=== PATIENT | male | born 1975 | race Caucasian/White ===

== ENCOUNTER 2022-01-17 11:44 | Inpatient (IN) | payer OTHER ==
[2022-01-17] MEDS ORDERED: MAGNESIUM HYDROX 2400MG/30ML ORAL SUSPENSION 30 ML CUP PO PRN (12:15)
[2022-01-17] MEDS ORDERED: MAGNESIUM CITRATE 300 ML BOTTLE PO PRN (12:15)
[2022-01-17] MEDS ORDERED: ONDANSETRON *ODT* 4 MG TABLET SL PRN (12:15)
[2022-01-17] MEDS ORDERED: IBUPROFEN 400 MG TABLET (FP) PO PRN (12:15)
[2022-01-17] MEDS ORDERED: ACETAMINOPHEN 325 MG TABLET (FP) PO PRN ×2 (12:15)
[2022-01-17] MEDS ORDERED: NICOTINE 10 MG CARTRIDGE (INHALER) IH PRN (12:15)
[2022-01-17] MEDS ORDERED: DICYCLOMINE HCL 10 MG CAPSULE PO PRN (12:15)
[2022-01-17] MEDS ORDERED: MAG HYDROX/AL HYDROX/SIMETH 30 ML UNIT-DOSE CUP PO PRN (12:15)
[2022-01-17] MEDS ORDERED: BISMUTH SUBSALICYLATE 262 MG/15 ML BTL PO PRN (12:15)
[2022-01-17] MEDS ORDERED: BENZOCAINE/MENTHOL (CHLORASEPTIC ) LOZENGE MM PRN (12:15)
[2022-01-17 12:30] VITALS: BMI 18.3
[2022-01-17] MEDS: PRENATAL VITAMINS W/ FOLIC ACID TABLET (FP) PO SCH (15:24)
[2022-01-17] MEDS: hydrOXYzine PAMOATE 25 MG CAPSULE (FP) PO SCH ×3 (15:24→22:39)
[2022-01-17] MEDS: NICOTINE 14 MG/24 HOURS TOPICAL PATCH TD SCH (15:24)
[2022-01-17 17:14] LABS: HEMATOCRIT 35.1 % (35.4-49); HEMOGLOBIN 11.3 GM/dL (11.7-16.9); MCH 27.1 pg (25.7-33.7); MCHC 32.1 g/dl (32.0-35.9); MEAN CELL VOLUME 84.5 fl (80-96); MEAN PLT VOLUME 9.7 fl (7.5-11.1); PLATELET COUNT 243 10^3/uL (134-434); RBC 4.16 M/mm3 (4.00-5.60); RDW 14.8 % (11.9-15.9); WHITE BLOOD COUNT 5.7 K/mm3 (4.0-10.0)
[2022-01-17 17:30] LABS: ALBUMIN 3.1 g/dl (3.4-5.0); BLOOD UREA NITROGEN 24.5 mg/dL (7-18); CALCIUM 8.7 mg/dL (8.5-10.1)
[2022-01-17 17:35] LABS: BILIRUBIN,TOTAL 0.5 mg/dL (0.2-1); TOT PROT 6.4 g/dl (6.4-8.2)
[2022-01-17] MEDS: METHOCARBAMOL 500 MG TABLET PO PRN (22:39)
[2022-01-17] MEDS: MELATONIN 5 MG TABLETS PO SCH (22:39)
[2022-01-17] MEDS: THIAMINE HCL 100 MG TABLET (FP) PO SCH (22:39)
[2022-01-18] MEDS: hydrOXYzine PAMOATE 25 MG CAPSULE (FP) PO SCH ×4 (07:37→17:45)
[2022-01-18] MEDS ORDERED: diazePAM 5 MG TABLET PO ONE (09:24)
[2022-01-18] MEDS ORDERED: diazePAM 5 MG TABLET PO PRN (09:24)
[2022-01-18] MEDS ORDERED: cloNIDine HCL 0.1 MG TABLET PO PRN (09:25)
[2022-01-18] MEDS ORDERED: methaDONE HCL 10 MG TABLET ONE (09:32)
[2022-01-18] MEDS ORDERED: methaDONE HCL 40 MG DISPERSABLE TABLET ONE (09:32)
[2022-01-18] MEDS: METHOCARBAMOL 500 MG TABLET PO PRN (09:54)
[2022-01-18] MEDS: NICOTINE 14 MG/24 HOURS TOPICAL PATCH TD SCH (09:54)
[2022-01-18] MEDS: PRENATAL VITAMINS W/ FOLIC ACID TABLET (FP) PO SCH (09:54)
[2022-01-18] MEDS ORDERED: methaDONE HCL 40 MG DISPERSABLE TABLET PO SCH (10:00)
[2022-01-18] MEDS ORDERED: methaDONE 40 MG, methaDONE 20 MG PO SCH (10:00)
[2022-01-18] MEDS: diazePAM 5 MG TABLET PO SCH ×3 (10:13→23:00)
[2022-01-18] MEDS: LOPERAMIDE HCL 2 MG CAPSULE PO PRN (11:35)
[2022-01-19] MEDS: MELATONIN 5 MG TABLETS PO SCH ×2 (01:03→22:51)
[2022-01-19] MEDS: hydrOXYzine PAMOATE 25 MG CAPSULE (FP) PO SCH ×6 (01:03→22:51)
[2022-01-19] MEDS: THIAMINE HCL 100 MG TABLET (FP) PO SCH ×2 (01:04→22:51)
[2022-01-19] MEDS: diazePAM 5 MG TABLET PO SCH ×4 (05:11→22:52)
[2022-01-19] MEDS: METHOCARBAMOL 500 MG TABLET PO PRN (05:11)
[2022-01-19] MEDS: LOPERAMIDE HCL 2 MG CAPSULE PO PRN (05:13)
[2022-01-19] MEDS ORDERED: methaDONE HCL 10 MG TABLET ONE (07:57)
[2022-01-19] MEDS ORDERED: methaDONE HCL 40 MG DISPERSABLE TABLET ONE (07:58)
[2022-01-19] MEDS: methaDONE 40 MG, methaDONE 20 MG PO SCH (07:59)
[2022-01-19] MEDS ORDERED: methaDONE HCL 10 MG TABLET PO SCH (08:00)
[2022-01-19] MEDS: PRENATAL VITAMINS W/ FOLIC ACID TABLET (FP) PO SCH (10:19)
[2022-01-19] MEDS: NICOTINE 14 MG/24 HOURS TOPICAL PATCH TD SCH (10:20)
[2022-01-19 14:08] LABS: SARS-CoV-2 NAA Not Detected (Not Detected)
[2022-01-20] MEDS ORDERED: methaDONE HCL 10 MG TABLET ONE (04:08)
[2022-01-20] MEDS ORDERED: methaDONE HCL 40 MG DISPERSABLE TABLET ONE (04:08)
[2022-01-20] MEDS: hydrOXYzine PAMOATE 25 MG CAPSULE (FP) PO SCH ×5 (06:13→22:41)
[2022-01-20] MEDS: methaDONE 40 MG, methaDONE 20 MG PO SCH (06:13)
[2022-01-20] MEDS: diazePAM 5 MG TABLET PO SCH ×3 (06:13→22:41)
[2022-01-20] MEDS: PRENATAL VITAMINS W/ FOLIC ACID TABLET (FP) PO SCH (10:11)
[2022-01-20] MEDS: NICOTINE 14 MG/24 HOURS TOPICAL PATCH TD SCH (10:12)
[2022-01-20] MEDS: THIAMINE HCL 100 MG TABLET (FP) PO SCH (22:41)
[2022-01-20] MEDS: MELATONIN 5 MG TABLETS PO SCH (22:41)
[2022-01-21] MEDS ORDERED: methaDONE HCL 40 MG DISPERSABLE TABLET ONE (04:26)
[2022-01-21] MEDS ORDERED: methaDONE HCL 10 MG TABLET ONE (04:26)
[2022-01-21] MEDS: hydrOXYzine PAMOATE 25 MG CAPSULE (FP) PO SCH ×5 (05:23→22:08)
[2022-01-21] MEDS: methaDONE 40 MG, methaDONE 20 MG PO SCH (05:23)
[2022-01-21] MEDS: diazePAM 5 MG TABLET PO SCH ×2 (05:23→17:48)
[2022-01-21] MEDS: PRENATAL VITAMINS W/ FOLIC ACID TABLET (FP) PO SCH (10:09)
[2022-01-21] MEDS: NICOTINE 14 MG/24 HOURS TOPICAL PATCH TD SCH (10:10)
[2022-01-21] MEDS: THIAMINE HCL 100 MG TABLET (FP) PO SCH (22:09)
[2022-01-21] MEDS: MELATONIN 5 MG TABLETS PO SCH (22:09)
[2022-01-22] MEDS ORDERED: methaDONE HCL 10 MG TABLET ONE (04:23)
[2022-01-22] MEDS ORDERED: methaDONE HCL 40 MG DISPERSABLE TABLET ONE (04:24)
[2022-01-22] MEDS: methaDONE 40 MG, methaDONE 20 MG PO SCH (05:55)
[2022-01-22] MEDS: hydrOXYzine PAMOATE 25 MG CAPSULE (FP) PO SCH ×2 (05:56→10:12)
[2022-01-22] MEDS ORDERED: diazePAM 5 MG TABLET PO ONE (06:00)
[2022-01-22 08:45] VITALS: BP 96/68; PULSE 78; TEMP 98
[2022-01-22] MEDS: NICOTINE 14 MG/24 HOURS TOPICAL PATCH TD SCH (10:12)
[2022-01-22] MEDS: PRENATAL VITAMINS W/ FOLIC ACID TABLET (FP) PO SCH (10:12)
== END 2022-01-22 11:10 | disposition home or self-care (01) | DRG 773 ==
LOC: YASAS 11:44 → Y3N 14:01
PROVIDERS: ADMIT Allergy & Immunology; ATTEND Allergy & Immunology
PROC: HZ2ZZZZ Detoxification Services for Substance Abuse Treatment (ICD-10-PCS; principal; 2022-01-17)
DX: F10.230 Alcohol dependence with withdrawal, uncomplicated (principal); F13.230 Sedative, hypnotic or anxiolytic dependence with withdrawal, uncomplicated; F11.20 Opioid dependence, uncomplicated; F14.20 Cocaine dependence, uncomplicated; F12.20 Cannabis dependence, uncomplicated; F17.210 Nicotine dependence, cigarettes, uncomplicated; F20.9 Schizophrenia, unspecified; F31.9 Bipolar disorder, unspecified; Z86.69 Personal history of other diseases of the nervous system and sense organs
CPT/HCPCS: 36415; 80053; 85027; 86780; 87811; 93005; 93010; C9803-CS; Q0162; U0003; U0005